=== PATIENT | male | born 1940 | race Caucasian/White ===

== ENCOUNTER 2016-03-28 15:18 | Inpatient (IN) | payer BC ==
--- NOTE | ~2016-03-28 | IDS ---
Interim Discharge Summary [facility] [address] [place]. [address] NAME: SANAM FONTANEZ : [birth year] STATUS : ADM IN PAT#: [id number] AGE: 75 ADM/REG DATE : 03/28/16 MR#: [id number] REPORT SERV DATE: 04/10/16 DICTATED BY: FARTUN ANAYA DATE: 04/10/16 REPORT STATUS : Draft TRANSCRIBED BY: MODL DATE: 04/10/16 ADMISSION DATE: 03/28/2016 DISCHARGE DATE: Interim date covered: 04/04/2016 through 04/10/2016. Please see interim summary by Dr. Eliu Light for hospital course prior to my assuming the patient's care. CURRENT HOSPITAL DIAGNOSES: Include: 1. Lung cancer with esophageal compression. 2. Dysphagia due to esophageal compression, status post esophageal stent by Dr. Gifford. 3. Chronic obstructive pulmonary disease with acute exacerbation, which had resolved. 4. Dyspepsia. 5. Atrial fibrillation. 6. Aspiration pneumonia, status post antibiotic treatment. 7. 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 Follows up outpatient with Dr. Florian. 8. Sepsis on admission, resolved. 9. Type 2 diabetes. 10.Morbid obesity. HISTORY OF PRESENT ILLNESS: Please see full H and P from admission by Dr. Eliu Light. HOSPITAL COURSE: Please see interim summary from Dr. Eliu Light from 04/03/2016. Since I have assumed care of the patient on 04/04/2016, the patient did finally have his esophageal stent placed by Dr. Gifford on 04/06/2016. There was noted extrinsic narrowing of the esophagus, status post stenting. He currently has been advanced past liquid diet per speech evaluation today, did have a modified barium swallow. Recommend pureed diet with honey-thickened liquids, small sips, small bites, and no straws. Aspiration precautions and oral care to be continued. In regard to his aspiration, pneumonia and COPD, these have resolved and he is status post treatment. He will follow up with Dr. Florian as an outpatient for further care and planning regarding his known lung cancer. He is back on his home medications p.o. since having his stent placed. He will be discharged to a subacute nursing facility once approval has been obtained. MARIA ISABEL/PEREZ Fartun Anaya MD / [id number] CC: Interim Discharge Summary [place] [address] [address] NAME: SANAM FONTANEZ : [birth year] STATUS : ADM IN PAT#: [id number] AGE: 75 ADM/REG DATE : 03/28/16 MR#: [id number] REPORT SERV DATE: 04/10/16 DICTATED BY: FARTUN ANAYA DATE: 04/10/16 REPORT STATUS : Draft TRANSCRIBED BY: MODL DATE: 04/10/16 Fartun Anaya MD UNKNOWN
--- NOTE | ~2016-03-28 | EGD ---
EGD REPORT [facility] [address] [address] NAME: SANAM BIRCH : 44 STATUS : ADM IN PAT#: [id number] AGE: 75 ADM/REG DATE : 03/28/16 MR#: [id number] REPORT SERV DATE: 04/03/16 DICTATED BY: MENDY AN DATE: 04/03/16 REPORT STATUS : Draft TRANSCRIBED BY: [facility] DATE: 04/03/16 [facility] Center Patient Name: Sanam Birch Date of : 1940 Attending MD: MENDY AN MD Procedure Date No Time: 04/03/2016 Procedure: Upper GI endoscopy Indications: Dysphagia, Stricture of the esophagus, Abnormal UGI series, Abnormal cine-esophagram Medicines: Propofol per Anesthesia Complications: No immediate complications. Procedure: Pre-Anesthesia Assessment: - ASA Grade Assessment: III - A patient with severe systemic disease. After obtaining informed consent, the endoscope was passed under direct vision. Throughout the procedure, the patient's blood pressure, pulse, and oxygen saturations were monitored continuously. The GIF [id number] was introduced through the mouth, and advanced to the gastric cardia. The upper GI endoscopy was accomplished without difficulty. The patient tolerated the procedure well. Findings: Food was found in the upper third of the esophagus and in the middle third of the esophagus. An extrinsic moderate stenosis measuring 8 cm (in length) was found 30 cm from the incisors and was traversed. The entire examined stomach was normal. Impression: - Food in the upper third of the esophagus and in the middle third of the esophagus. - Extrinsic narrowing of the esophagus. - Normal stomach. - Due to the food in the esophagus it was decided to end the procedure. Recommendation: - Perform an upper GI endoscopy at appointment to be scheduled. - with placement of a 10cm esophageal stent. - Clear liquid diet. - [facility]. Procedure Code(s): --- Professional --- 40868, Esophagoscopy, flexible, transoral; diagnostic, EGD REPORT [facility] [address] [place], [place] [address]. [address] NAME: SANAM BIRCH : 44 STATUS : ADM IN [facility]#: [id number] AGE: 75 ADM/REG DATE : 03/28/16 MR#: [id number] REPORT SERV DATE: 04/03/16 DICTATED BY: MENDY AN DATE: 04/03/16 REPORT STATUS : Draft TRANSCRIBED BY: [employer] DATE: 04/03/16 including collection of specimen(s) by brushing or washing, when performed (separate procedure) Diagnosis Code(s): --- Professional --- T18.128A, Food in esophagus causing other injury, initial encounter K22.2, Esophageal obstruction R13.10, Dysphagia, unspecified R93.3, Abnormal findings on diagnostic imaging of other parts of digestive tract CPT copyright 2013 [employer]. All rights reserved. The codes documented in this report are preliminary and upon qa analyst review may be revised to meet current compliance requirements. Mendy An MD MENDY AN MD 04/03/2016 4:33 PM This report has been signed electronically. Number of Addenda: 0 Note Initiated On: 04/03/2016 2:52 PM Scope Withdrawal Time 0 hours 0 minutes 0 seconds [address] [facility] [place] [address]
--- NOTE | ~2016-03-28 | IDS ---
Interim Discharge Summary [facility] [address] [place]. [address] NAME: SANAM FONTANEZ : 42 STATUS : ADM IN [facility]#: [id number] AGE: 75 ADM/REG DATE : 03/28/16 MR#: [id number] REPORT SERV DATE: 04/04/16 DICTATED BY: DATE: REPORT STATUS : Draft TRANSCRIBED BY: MODL DATE: 04/03/16 ADMISSION DATE: 03/28/2016 DISCHARGE DATE: [facility] CONSULTANTS: Medical Oncology - Dr. Jono Florian; Radiation Oncology; and Gastroenterology, Dr. Gifford. CURRENT DIAGNOSES: 1. Sepsis present at admission - due to aspiration pneumonia versus pneumonitis. Recurrent aspiration events during the hospitalization. Plan to discontinue Zosyn on the morning of 04/04/2016, three days after last witnessed aspiration event. 2. Acute exacerbation of chronic obstructive pulmonary disease due to aspiration pneumonia versus pneumonitis. 3. Acute on chronic hypoxemic respiratory failure - currently at baseline oxygen requirement 2 L by nasal cannula. 4. Esophageal dysmotility versus extrinsic compression from large right-sided lung cancer - for attempted EGD with stent on the afternoon of 04/03/2016 - procedure terminated for excessive retained food in the esophagus. To re-attempt on 04/05/2016. 5. 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 Functional status limits treatment options. 6. Recurrent pleural effusion - status post PleurX catheter on 03/21/2016. Draining on Sunday, Sunday, and Sunday. 7. Chronic atrial fibrillation - currently rate controlled. Some hypotension on attempts to increase rate agents. Improved with digoxin. 8. Blg-gphjjbo-lxrtmxrmy diabetes mellitus type 2. 9. History of hypertension. 10.Hyperlipidemia. 11.Depression and anxiety. 12.Morbid obesity. 13.Generalized weakness and poor functional status. 14.Acute kidney injury present at admission - resolved. IMAGING AND DIAGNOSTICS: 1. Chest CT without contrast, 03/28/2016, for hypoxemia and sepsis shows new finding related to the esophagus. Esophagus is filled with gas and debris, possibly related to reflux, achalasia, or distal GE junction lesion. No lesion identified on CT. Correlation with esophagram is recommended. Modified barium swallow would be of benefit. Decreased size of rounded density in the lingula, likely atelectasis. Other findings similar with noted right lung carcinoma, post obstructive consolidation, and pleural fluid with PleurX drainage catheter in place. 2. Barium swallow, 03/31/2016: Narrowing of the distal half of the esophagus may be due to compression by the patient's known right lower lobe mass extending into the mediastinum, radiation therapy, reflux, stricture, or a combination. Primary stripping Interim Discharge Summary [place] [address] [address] NAME: SANAM FONTANEZ : 44 STATUS : ADM IN PAT#: [id number] AGE: 75 ADM/REG DATE : 03/28/16 MR#: [id number] REPORT SERV DATE: 04/04/16 DICTATED BY: DATE: REPORT STATUS : Draft TRANSCRIBED BY: MODL DATE: 04/03/16 wave is disrupted at the level where the narrowing begins and is followed by numerous tertiary contractions. Barium tablet could not be given as they are currently not available nationwide. 3. EGD, 04/03/2016, by Dr. Gifford showed food in the upper third of the esophagus and in the middle third of the esophagus, extrinsic moderate stenosis measuring 8 mm found 30 cm from the incisors and was traversed. Normal stomach. Esophageal stent could not be placed. PERTINENT LABS: Sputum culture with sparse growth of MRSA. Lactate 1.1. Troponin x2 negative. BNP 209. TSH 0.4. White blood cell count 10.5, hemoglobin 9.6. Initial creatinine 1.6, current creatinine 1.2. Digoxin level 0.5. BRIEF HISTORY: For full details, please see the previously dictated history of present illness. This is a 75-year-old white male with multiple recent hospitalizations, accepted in transfer from the [facility] Emergency Department after he was sent there twice from [facility] where he was rehabilitating after a recent hospitalization at [facility] for symptomatic right-sided pleural effusion. The patient was diagnosed with stage IIIA squamous cell carcinoma of the right lung in 02/2016, and then readmitted in 03/2016 with a symptomatic right-sided pleural effusion, and underwent thoracentesis and eventual PleurX catheter placement on 03/21/2016. He was referred to [facility] at discharge and apparently was not doing very well once there. He was experiencing some reflux and noted to be aspirating. He was having progressive dysphagia. This culminated in an episode of shortness of breath and hypoxemia for which he was initially evaluated in the [facility] Emergency Department on 03/27/2016 and discharged because he was refusing admission at that point. He was sent back to the [facility] on the morning of 03/28/2016 with oxygen saturations in the 80% range on 4 L nasal cannula, in AFib RVR, with hypotension, and altered mental status. He requested admission to [facility] because his oncologist is here, and because he had recently been discharged from this facility. He was admitted to the [facility] with diagnoses of sepsis, stage IIIA squamous cell cancer of the right lung, atrial fibrillation RVR, and suspected new right middle lobe infiltrate. HOSPITAL COURSE: Initial antibiotics included coverage for healthcare-acquired pneumonia, with cefepime and vancomycin. He has a history of COPD and was wheezing, so also was placed on steroids and nebulizer treatments. Regarding atrial fibrillation, his Cardizem was attempted to be increased, but this resulted in hypotension necessitating the addition of digoxin this admission with good result. The history of a recently abnormal swallow evaluation at [facility] was not available until family was present and the patient's mentation was improved on 03/30/2016, at which point interim history included that the patient has been aspirating over the past 4 weeks, and that recurrent aspiration pneumonia or pneumonitis was most likely cause for this hospitalization, sepsis, and acute pulmonary decompensation. The patient had never been evaluated by Gastroenterology. CT scan revealed probable extrinsic compression of the esophagus with a large amount of retained gas, food, and other debris. Gastroenterology was consulted - Dr. Gifford. He saw the patient on 03/30/2016 and began planning for an EGD. Interim Discharge Summary [address] [place]. [address] NAME: SANAM FONTANEZ : 44 STATUS : ADM IN [facility]#: [id number] AGE: 75 ADM/REG DATE : 03/28/16 MR#: [id number] REPORT SERV DATE: 04/04/16 DICTATED BY: DATE: REPORT STATUS : Draft TRANSCRIBED BY: MODL DATE: 04/03/16 Oncology has been following along this admission as well, and agreed with the plan for EGD and esophageal stent to relieve the obstruction, and give the patient a chance at some meaningful nutrition in the hopes that he will be able to participate with physical therapy more actively and improve his functional status so that he can be a candidate for full staging for his lung cancer, and possibly for chemotherapy and radiation. At present, he has been unable to participate with PT, and is unable to keep down food and fluid. He has been counseled on multiple occasions by Dr. Florian that he is not presently a candidate for any treatment, and his code status was changed to DNR this admission. However, the patient would continue to decline hospice. EGD was attempted on 04/03/2016, but there was an excessive quantity of retained food, pill fragments, and other debris throughout the esophagus, and the procedure with stent placement could not be completed. Dr. Gifford is going to attempt the procedure again on 04/05/2016. As previously discussed with Oncology, palliative radiation of the right lower lobe squamous cell carcinoma may be an option as well to help relieve the esophageal obstruction and symptoms there of - however, this approach would require a longer amount of time before any expected response. The patient's chronic medical conditions are well controlled this admission. His breathing is greatly improved, and as his last witnessed aspiration event was on 04/01/2016, we will plan to discontinue his Zosyn tomorrow morning. Pulmonary status and white blood cell count will need to be monitored closely, and repeat lab values are pending for the morning. Following the failed EGD attempt, Dr. Gifford has recommended that the patient be kept on clear liquids only, and all of his medications be changed over to IV. This was done with the assistance of the pharmacy, as possible this evening. His chronic anticoagulation for stroke prophylaxis with atrial fibrillation will remain on hold, awaiting repeat EGD. AKS/MODL Eliu Light M.D. / [id number] CC: Crystal Norton M.D. Benjamin R Nadeau, MD
--- NOTE | ~2016-03-28 | EGD ---
EGD REPORT [facility] [address] [address] NAME: SANAM BIRCH : 44 STATUS : ADM IN PAT#: [id number] AGE: 75 ADM/REG DATE : 03/28/16 MR#: [id number] REPORT SERV DATE: 04/06/16 DICTATED BY: MENDY AN DATE: 04/06/16 REPORT STATUS : Draft TRANSCRIBED BY: [facility] DATE: 04/06/16 Endoscopy Center Patient Name: Sanam Birch Date of : 1940 Attending MD: MENDY AN MD Procedure Date No Time: 04/06/2016 Procedure: Upper GI endoscopy Indications: Stenosis of the esophagus, For therapy of esophageal stenosis Referring MD: GLENNA WYNN Medicines: General Anesthesia Complications: No immediate complications. Procedure: Pre-Anesthesia Assessment: - ASA Grade Assessment: IV - A patient with severe systemic disease that is a constant threat to life. After obtaining informed consent, the endoscope was passed under direct vision. Throughout the procedure, the patient's blood pressure, pulse, and oxygen saturations were monitored continuously. The GIF [id number] was introduced through the mouth, and advanced to the second part of duodenum. The upper GI endoscopy was accomplished without difficulty. The patient tolerated the procedure well. Findings: Normal mucosa was found in the entire esophagus. An extrinsic moderate stenosis measuring 8 cm (in length) was found 30 cm from the incisors and was traversed. This was stented with an 18 mm x 10.3 cm WallFlex covered stent under fluoroscopic guidance. A small hiatus hernia was present. as seen on retroflexion done prior to stent placement Diffuse mild inflammation characterized by congestion (edema) and erythema was found in the entire examined stomach. The examined duodenum was normal. Impression: - Normal mucosa was found in the entire esophagus. - Extrinsic narrowing of the esophagus. Prosthesis placed. - Hiatus hernia. - Gastritis. - Normal examined duodenum. Recommendation: - Clear liquid diet. - Continue present medications. - [facility]. EGD REPORT [address] [address] NAME: SANAM BIRCH : 44 STATUS : ADM IN [facility]#: [id number] AGE: 75 ADM/REG DATE : 03/28/16 MR#: [id number] REPORT SERV DATE: 04/06/16 DICTATED BY: MENDY AN DATE: 04/06/16 REPORT STATUS : Draft TRANSCRIBED BY: [employer] DATE: 04/06/16 Procedure Code(s): --- Professional --- 38153, Esophagogastroduodenoscopy, flexible, transoral; with placement of endoscopic stent (includes pre- and post-dilation and guide wire passage, when performed) Diagnosis Code(s): --- Professional --- K22.2, Esophageal obstruction K44.9, Diaphragmatic hernia without obstruction or gangrene K29.70, Gastritis, unspecified, without bleeding CPT copyright 2013 [employer]. All rights reserved. The codes documented in this report are preliminary and upon slot editor review may be revised to meet current compliance requirements. Mendy An MD MENDY AN MD 04/06/2016 4:33 PM This report has been signed electronically. Number of Addenda: 0 Note Initiated On: 04/06/2016 3:04 PM Scope Withdrawal Time 0 hours 0 minutes 1 second [id number] [place] [address]
--- NOTE | ~2016-03-28 | DS ---
Discharge Summary [place] [address] [place]. [address] NAME: SANAM FONTANEZ : 44 STATUS : DIS IN PAT#: [id number] AGE: 75 ADM/REG DATE : 03/28/16 MR#: [id number] REPORT SERV DATE: 06/01/16 DICTATED BY: SOFIE BUCHANAN II DATE: 05/31/16 REPORT STATUS : Draft TRANSCRIBED BY: MODL DATE: 05/31/16 ADMISSION DATE: 03/28/2016 DISCHARGE DATE: 04/12/2016 DISCHARGE DIAGNOSES: 1. Lung cancer with esophageal compression. 2. Dysphagia due to esophageal compression status post esophageal stent by Dr. Gifford. 3. Chronic obstructive pulmonary disease with acute exacerbation, now resolved. 4. Dyspepsia. 5. Atrial fibrillation. 6. Aspiration pneumonia status post antibiotic treatment. 7. 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 Florian. 8. Sepsis on admission, now resolved. 9. Diabetes type 2. 10.Morbid obesity. HISTORY OF PRESENT ILLNESS: Please see full H and P from admission by Dr. Eliu Light. HOSPITAL COURSE: For details of the patient's hospitalization please see Dr. Light's interim summary from 04/03/[address] Anaya's summary from 04/10/2016. I subsequently took over the patient's care and the patient was discharged two days later on the as he was merely pending placement at that point in time for group home. Unfortunately, the patient continued to have progressive hypoxia secondary to aspiration with coarse lung sounds. Given the overall poor prognosis and him not being a treatment candidate for his lung cancer, Hospice was recommended and given his oxygen requirement was subsequently transferred to the [facility]. DISCHARGE MEDICATIONS: Per Hospice. RAYMOND/PEREZ Sofie Buchanan II, MD / [id number] CC: Sofie Buchanan II, MD
--- NOTE | ~2016-03-28 | HP ---
History And Physical [place] [id number] [facility] [place]. [address] NAME: SANAM BIRCH : 44 STATUS : ADM IN [facility]#: [id number] AGE: 75 ADM/REG DATE : 03/28/16 MR#: [id number] REPORT SERV DATE: 03/28/16 DICTATED BY: DATE: REPORT STATUS : Draft TRANSCRIBED BY: MODL DATE: 03/28/16 DATE OF ADMISSION: 03/28/2016 CHIEF COMPLAINT: Shortness of breath, altered mental status. HISTORY OF PRESENT ILLNESS: Mr. Birch is a 75-year-old white male who was recently hospitalized here at [facility], discharged on 03/23/2016, after being treated for a right- sided pleural effusion. He underwent thoracentesis on 03/20/2016 and placement of a PleurX catheter on 03/21/2016. 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 Imaging after placement of PleurX catheter and drainage of the right- sided effusion revealed extensive malignancy throughout the right side, including the hilum. Plan was for patient to follow up with Dr. Jono Florian to discuss options regarding chemotherapy and/or radiation therapy. The patient subsequently was transferred to [facility] to begin physical rehabilitation. He was cared for there by Dr. William Delarosa. The PleurX catheter was being drained every Sunday, Sunday, and Sunday per discharge instructions. Reportedly, the patient's PleurX catheter was drained on Sunday morning, but throughout the afternoon, he developed increasing shortness of breath. He initially was seen in the [facility] Emergency Department on the evening of 03/27/2016 with shortness of breath but refused to be admitted. He was sent back to [facility], and transported back early in the morning on the 03/28/2016 with hypoxemia and noted oxygen saturations in the mid 80s on 4 L nasal cannula. Also, he had an elevated heart rate in one-teens to 120 range. He was found to be confused upon his second [facility] evaluation, and though he continued to refuse admission, was not deemed mentally competent to make that decision at that time. Additional workup in their emergency department revealed possibly new right lower lobe infiltrate, elevated lactic acid level, and elevated white blood cell count concerning for a new pneumonia. Regarding the atrial fibrillation, the patient was treated with a Cardizem drip but developed hypotension with systolic blood pressures in the 80s, and subsequently this drip had to be discontinued. Instead, he was given IV digoxin with resultant rates between 100 and 110 and systolic blood pressure in the 100 range after fluids. [facility] requested transfer here because the patient is to establish oncologic care with Dr. Jono Florian, and the patient was just discharged from this facility on 03/23/2016 and has had several recent hospitalizations here as well. On evaluation this evening, the patient reports feeling "okay." He still endorses some shortness of breath but denies any chest pain or palpitations. He is not producing phlegm. He denies any paroxysmal nocturnal dyspnea or orthopnea. He denies recent edema. He is complaining of thirst. The patient was treated with vancomycin, Zosyn, and Levaquin prior to transfer. REVIEW OF SYSTEMS: A full 14-point review of systems was negative except as dictated in the history of present History And Physical [address] [address] NAME: SANAM BIRCH : 44 STATUS : ADM IN [facility]#: [id number] AGE: 75 ADM/REG DATE : 03/28/16 MR#: [id number] REPORT SERV DATE: 03/28/16 DICTATED BY: DATE: REPORT STATUS : Draft TRANSCRIBED BY: MODNatalie DATE: 03/28/16 illness. PAST MEDICAL HISTORY: 1. COPD - 2 L oxygen dependent at baseline. 2. History of recurrent pneumonias. 3. Atrial fibrillation - rate controlled and chronically anticoagulated. 4. Bzk-kltlgly-wtnvnrhle diabetes mellitus type 2. 5. Hypertension. 6. History of multiple pleural effusions and a prior empyema in 2013, status post decortication, most recently with a thoracentesis and PleurX catheter placed, 03/21/2016. 7. Chronic kidney disease, stage III. 8. Obesity. 9. Osteoarthritis. PAST SURGICAL HISTORY: Includes: 1. PleurX catheter placement, 2016. 2. Decortication of empyema, 2013. 3. Appendectomy in the third grade. ALLERGIES: NO KNOWN DRUG ALLERGIES. MEDICATIONS: The medication list from [facility] was reviewed, pertinent for 1. Hydrochlorothiazide 25 mg p.o. daily. 2. Hydrocodone 5/325 mg one tablet p.o. every 4 hours as needed. 3. Humalog sliding scale insulin. 4. Krill oil 1 cap p.o. daily. 5. Ativan 2 mg p.o. three times a day. 6. Dulera 200/5 mcg 2 puffs inhaled twice a day. 7. Actos 45 mg p.o. daily. 8. Xarelto 20 mg p.o. daily. 9. Diovan 320 mg p.o. daily. 10.Acetaminophen 1000 mg p.o. twice a day as needed for osteoarthritis. 11.DuoNebs 1 neb inhaled every 4 hours while awake. 12.Lipitor 20 mg p.o. at bedtime. 13.Coreg 25 mg p.o. twice a day. 14.Mycelex troches 10 mg p.o. four times a day. 15.Cardizem 30 mg p.o. every six hours. 16.Cymbalta 60 mg p.o. daily. 17.Lasix 20 mg p.o. daily. SOCIAL HISTORY: The patient used to smoke, began smoking when he was 19 years old. He quit smoking in 2015 but still has some secondhand smoke exposure. He does not drink any alcohol. He is a [employer] and was exposed to asbestos while serving in the [employer]. He is a retired welder repair. He has no biologic children. FAMILY HISTORY: Pertinent for mother with Alzheimer's dementia and father in his 80s of History And Physical [address] [address] NAME: SANAM BIRCH : 44 STATUS : ADM IN [facility]#: [id number] AGE: 75 ADM/REG DATE : 03/28/16 MR#: [id number] REPORT SERV DATE: 03/28/16 DICTATED BY: DATE: REPORT STATUS : Draft TRANSCRIBED BY: MODNatalie DATE: 03/28/16 myocardial infarction. PHYSICAL EXAMINATION: VITAL SIGNS: Temperature 96.5, pulse 94, respirations 20, oxygen saturation 99% on 4 L nasal cannula, and blood pressure 103/63. GENERAL: This is an obese white male in no acute distress. He is alert and oriented in three dimensions with somewhat wqfcfwmqa-ui-suczxxhtrf speech at baseline. HEENT: Normocephalic and atraumatic. Pupils are equally round and reactive to light. No scleral icterus. No conjunctival pallor. No sinus tenderness to palpation. Oropharynx is dry with pink mucosa. No posterior pharyngeal erythema. No exudate. NECK: Supple with no jugular venous distention. No lymphadenopathy. No bruits. CARDIOVASCULAR: Irregularly irregular tachycardia with no murmurs, rubs, or gallops. LUNGS: Coarse inspiratory rhonchi, bilateral bases, right greater than left with decreased breath sounds at bilateral bases and tight end expiratory wheezing. ABDOMEN: Soft, nontender, and nondistended with normoactive bowel sounds in four quadrants and no hepatosplenomegaly. EXTREMITIES: No cyanosis, clubbing, or edema. Negative Homans' sign bilaterally. SKIN: Normal skin turgor with no rash or skin breakdown. NEUROLOGIC: Cranial nerves II through XII are tested and are intact. Deep tendon reflexes 2+, bilateral brachioradialis and patellar tendons. Strength is 5/5, bilateral upper and lower extremities. Sensation intact to fine touch and temperature in all four limbs. LABORATORY DATA: [facility] record is reviewed with troponin 0.02, white blood cell count 13.5, hemoglobin 10.3, hematocrit 32.9, and platelets 195. PTT 46. INR 1.6. Lactic acid is 3.12. Urinalysis slightly cloudy with 1 epithelial cell and 15 hyaline casts; otherwise, normal. Blood cultures were obtained at [place] but not yet available for review. IMAGING: Reportedly a portable chest x-ray done at [place] showed right lower lobe infiltrate. Report and images are not available for review here. No EKG accompanied the patient on transfer either. IMPRESSION: 1. Sepsis - elevated white count, increased heart rate, hypoxemia, elevated lactic acid with possible new right-sided infiltrate. Recent hospitalizations. Suspect healthcare- acquired pneumonia. 2. Acute on chronic hypoxemic respiratory failure. 3. Chronic obstructive pulmonary disease with acute exacerbation. 4. Stage IIIA squamous cell carcinoma of the right lung with associated effusions, status post recent thoracentesis and PleurX catheter placement. 5. Atrial fibrillation with rapid ventricular response - underlying history of atrial fibrillation chronically. 6. Uts-jeolzho-ebwamzwzl diabetes mellitus type 2. 7. History of hypertension - presently hypotensive. 8. Chronic kidney disease, stage III - creatinine currently normal. 9. Generalized anxiety disorder. 10.Morbid obesity. History And Physical [address] [address] NAME: SANAM BIRCH : 44 STATUS : ADM IN PAT#: [id number] AGE: 75 ADM/REG DATE : 03/28/16 MR#: [id number] REPORT SERV DATE: 03/28/16 DICTATED BY: DATE: REPORT STATUS : Draft TRANSCRIBED BY: MODL DATE: 03/28/16 PLAN: 1. The patient is admitted in inpatient status to a cardiac telemetry unit. Attending doctor, Dr. Eliu Light. Expected length of stay, greater than 2 midnights, given necessity for IV antibiotics, IV steroids, intensified nebulizer regimen, and adjustments to atrial fibrillation medications. 2. Records have been requested from Dr. Jono Florian's office - it is unclear whether the patient has seen him as an outpatient yet. 3. Sputum cultures if patient able to produce. Follow up blood cultures from [facility]. Obtain serum lactic acid level now as the patient has received IV fluids for most of today with a repeat in hours. Additional labs including strep pneumo antigen and Legionella antigen, procalcitonin, BNP, serial troponins, repeat CBC, and basic metabolic panel in the morning. 4. Supplemental oxygen, IV steroids, nebulizer treatments, antibiotics for healthcare- acquired pneumonia to include cefepime and vancomycin initially with adjustment pending culture results. 5. CT of the chest without contrast to re-evaluate the abnormalities on the right side of the lung - lung cancer with history of empyema, recent loculated effusion, possible new pneumonia. 6. Gentle IV hydration. Last known echocardiogram in 10/2015 showed normal ejection fraction. 7. Attempt rate control with oral Cardizem and digoxin if needed. Continue patient on home anticoagulation and check EKG now as well as in the morning. 8. Sliding scale insulin and Accu-Cheks, monitor for need for basal insulin if steroid- induced hyperglycemia develops. Forty-five minutes was spent in completion of this admission. MARYSOL/PEREZ Eliu Light M.D. / [id number] CC: Jono Florian MD
[~2016-03-28 15:18] MED LIST: ACET500CAP PO; ACTOS30 PO; ACTOS45 PO; ATIVAN2 MG PO; ATV1 PO; COREG25 PO; COUMADIN7.5 MG PO; CYANO1000T PO; CYMBALTA60 PO; DIOVAN HCT320 MG/25 PO; FOLIC ACID400 MC1 PO; HCTZ PO; KRILLOIL PO; L20 PO; LIPITOR10 PO; LIPITOR20 PO; SYMBICORT 160/41 INH INH; VALSARTAN PO; VITAMIN B-12 PO; XARELTO20 MG PO
[2016-03-28] MEDS ORDERED: LIPITOR20 PO (16:48)
[2016-03-28] MEDS ORDERED: CARD30 PO (16:49)
[2016-03-28] MEDS ORDERED: L20 PO (16:49)
[2016-03-28] MEDS ORDERED: MYCELEX TROCHE10 MG PO (16:49)
[2016-03-28] MEDS ORDERED: CYMBALTA60 PO (16:49)
[2016-03-28] MEDS ORDERED: XARELTO20 MG PO (16:50)
[2016-03-28] MEDS ORDERED: DULERA 200 MCG/13 GM INH (16:50)
[2016-03-28] MEDS ORDERED: ACTOS45 PO (16:50)
[2016-03-28] MEDS ORDERED: DUONEB INH (16:50)
[2016-03-28] MEDS ORDERED: ACET500CAP PO (16:51)
[2016-03-28] MEDS ORDERED: COREG25 PO (16:51)
[2016-03-28] MEDS ORDERED: HUMALOG SC (16:51)
[2016-03-28] MEDS ORDERED: ATIVAN2 MG PO (16:52)
[2016-03-28] MEDS ORDERED: DIOVAN320 MG PO (16:52)
[2016-03-28] MEDS ORDERED: KRILLOIL PO (16:52)
[2016-03-28] MEDS ORDERED: HYDROCHLOROT25 MG PO (16:52)
[2016-03-28] MEDS ORDERED: NORCO1 TA1 PO (16:52)
[2016-03-28 19:37] LABS: BASOPHILS 0.1 %; BASOPHILS ABSOLUTE 0.01 10/3/uL (0.0-0.16); EOSINOPHILS 0.5 %; EOSINOPHILS ABSOLUTE 0.05 10/3/uL (0.0-0.53); IMMATURE GRANULOCYTES 0.9 %; LYMPHOCYTES 11.2 %; LYMPHOCYTES ABSOLUTE 1.18 10/3/uL (0.67-4.30); MEAN CORPUS HGB CONC 31.6 g/dL (32.0-36.0); MEAN CORPUSCULAR HEMOGLOB 26.5 pg (26.0-34.0); MEAN CORPUSCULAR VOLUME 83.8 fL (80-100); MEAN PLATELET VOLUME 10.4 fL (9.2-13.0); MONOCYTES 3.8 %; NEUTROPHILS 83.5 %; NEUTROPHILS ABSOLUTE 8.79 10/3/uL (2.02-8.40); PLATELET COUNT 208 10/3/uL (150-400); RBC DISTRIBUTION WIDTH 17.5 % (12.0-16.0)
[2016-03-28 19:38] LABS: HEMATOCRIT 28.5 % (40.0-51.0); MANUAL DIFF NO %; WHITE BLOOD CELLS 10.5 10/3/uL (4.5-10.5)
[2016-03-28 19:57] LABS: LACTATE 1.3 MMOL/L (0.3-2.4)
[2016-03-28 20:02] LABS: A/G RATIO 0.5 (0.7-1.9); ALKALINE PHOSPHATASE 68 U/L (45-117); CALCIUM, SERUM 8.5 MG/DL (8.5-10.4); CHLORIDE, SERUM 93 MMOL/L (96-112); CO2 (CARBON DIOXIDE) 32 MMOL/L (24-34); GLUCOSE, SERUM 161 MG/DL (60-99); POTASSIUM, SERUM 3.5 MMOL/L (3.5-5.3); SGOT(AST) 13 U/L (5-40); SGPT(ALT) 12 U/L (5-65); SODIUM, SERUM 137 MMOL/L (135-148); TROPONIN I <0.02 NG/ML (<0.05)
[2016-03-28 20:05] LABS: BUN (BLOOD UREA NITROGEN) 31 MG/DL (6-23); CREATININE 1.59 MG/DL (0.70-1.30); GFR AFRICAN AMERICAN 49 ML/MIN (>=60); GFR NON AFRICAN AMERICAN 42 ML/MIN (>=60); TOTAL BILIRUBIN 0.7 MG/DL (0-1.2); ULTRASENSITIVE TSH 0.407 MCIU/ML (0.358-3.740)
[2016-03-28 20:07] LABS: B NATRIURETIC PEPTIDE (BNP) 209.1 PG/ML (< 100.0)
[2016-03-28 20:53] LABS: PROCALCITONIN 0.16 ng/mL (<0.5)
[2016-03-28 22:43] LABS: LACTATE 1.1 MMOL/L (0.3-2.4)
[2016-03-29 06:20] LABS: BASOPHILS 0.1 %; BASOPHILS ABSOLUTE 0.01 10/3/uL (0.0-0.16); EOSINOPHILS 0 %; HEMATOCRIT 30.2 % (40.0-51.0); HEMOGLOBIN 9.6 g/dL (13.6-17.8); IMMATURE GRANULOCYTES ABSOLUTE 0.11 10/3/uL (0.0-0.11); LYMPHOCYTES ABSOLUTE 0.32 10/3/uL (0.67-4.30); MEAN CORPUS HGB CONC 31.8 g/dL (32.0-36.0); MEAN CORPUSCULAR HEMOGLOB 27.1 pg (26.0-34.0); MEAN CORPUSCULAR VOLUME 85.3 fL (80-100); MEAN PLATELET VOLUME 10.4 fL (9.2-13.0); MONOCYTES ABSOLUTE 0.11 10/3/uL (0.21-1.20); NEUTROPHILS 94.9 %; NEUTROPHILS ABSOLUTE 9.97 10/3/uL (2.02-8.40); PLATELET COUNT 212 10/3/uL (150-400); RBC DISTRIBUTION WIDTH 17.2 % (12.0-16.0); RED CELL COUNT 3.54 10/6/uL (4.7-6.1); WHITE BLOOD CELLS 10.5 10/3/uL (4.5-10.5)
[2016-03-29 06:21] LABS: MANUAL DIFF NO %
[2016-03-29 06:34] LABS: CHLORIDE, SERUM 95 MMOL/L (96-112); CREATININE 1.29 MG/DL (0.70-1.30); GFR AFRICAN AMERICAN 63 ML/MIN (>=60); GFR NON AFRICAN AMERICAN 55 ML/MIN (>=60); POTASSIUM, SERUM 4.2 MMOL/L (3.5-5.3); SODIUM, SERUM 135 MMOL/L (135-148); TROPONIN I <0.02 NG/ML (<0.05)
[2016-03-29 06:35] LABS: BUN (BLOOD UREA NITROGEN) 27 MG/DL (6-23); CO2 (CARBON DIOXIDE) 27 MMOL/L (24-34); GLUCOSE, SERUM 238 MG/DL (60-99)
[2016-03-29 21:17] LABS: GLYCOHEMOGLOBIN (HbA1c) 7.8 % (4.7-6.1)
[2016-03-30 09:45] LABS: BASOPHILS 0.1 %; BASOPHILS ABSOLUTE 0.01 10/3/uL (0.0-0.16); EOSINOPHILS 0 %; HEMOGLOBIN 9.7 g/dL (13.6-17.8); IMMATURE GRANULOCYTES 0.6 %; IMMATURE GRANULOCYTES ABSOLUTE 0.08 10/3/uL (0.0-0.11); LYMPHOCYTES 3.1 %; LYMPHOCYTES ABSOLUTE 0.41 10/3/uL (0.67-4.30); MEAN CORPUS HGB CONC 32.3 g/dL (32.0-36.0); MEAN CORPUSCULAR HEMOGLOB 27.3 pg (26.0-34.0); MEAN CORPUSCULAR VOLUME 84.5 fL (80-100); MEAN PLATELET VOLUME 10.6 fL (9.2-13.0); MONOCYTES 1.4 %; MONOCYTES ABSOLUTE 0.19 10/3/uL (0.21-1.20); NEUTROPHILS 94.8 %; NEUTROPHILS ABSOLUTE 12.64 10/3/uL (2.02-8.40); PLATELET COUNT 240 10/3/uL (150-400); RED CELL COUNT 3.55 10/6/uL (4.7-6.1); WHITE BLOOD CELLS 13.3 10/3/uL (4.5-10.5)
[2016-03-30 09:46] LABS: MANUAL DIFF NO %
[2016-03-30 10:01] LABS: BUN (BLOOD UREA NITROGEN) 27 MG/DL (6-23); CHLORIDE, SERUM 94 MMOL/L (96-112); CO2 (CARBON DIOXIDE) 30 MMOL/L (24-34); CREATININE 1.29 MG/DL (0.70-1.30); GFR AFRICAN AMERICAN 63 ML/MIN (>=60); GFR NON AFRICAN AMERICAN 55 ML/MIN (>=60); GLUCOSE, SERUM 256 MG/DL (60-99); POTASSIUM, SERUM 3.7 MMOL/L (3.5-5.3); SODIUM, SERUM 136 MMOL/L (135-148)
[2016-04-01 04:41] LABS: HEMATOCRIT 31.5 % (40.0-51.0); MEAN CORPUS HGB CONC 31.7 g/dL (32.0-36.0); MEAN CORPUSCULAR HEMOGLOB 26.5 pg (26.0-34.0); MEAN CORPUSCULAR VOLUME 83.6 fL (80-100); MEAN PLATELET VOLUME 10.4 fL (9.2-13.0); PLATELET COUNT 253 10/3/uL (150-400); RBC DISTRIBUTION WIDTH 17.4 % (12.0-16.0); RED CELL COUNT 3.77 10/6/uL (4.7-6.1); WHITE BLOOD CELLS 12.7 10/3/uL (4.5-10.5)
[2016-04-01 04:43] LABS: MANUAL DIFF YES %
[2016-04-01 05:02] LABS: ANISOCYTOSIS 1+ (5-10/OIF) (0-5/OIF); BAND NEUTROPHILS 2 %; ELLIPTOCYTES 1+ (3-10/OIF) (0-2/OIF); LYMPHOCYTES 5 %; LYMPHOCYTES ABSOLUTE (CALC) 0.64 10/3/uL (0.67-4.30); MONOCYTES 3 %; MONOCYTES ABSOLUTE (CALC) 0.38 10/3/uL (0.21-1.20); NEUTROPHILS ABSOLUTE (CALC) 11.68 10/3/uL (2.02-8.40); PLATELET ESTIMATE ADQ (ADEQUATE); SEGMENTED NEUTROPHIL (0) 90 %; TEARDROP SHAPED RBCS OCC (0-2/OIF); TOTAL NUCLEATED CELLS 100
[2016-04-01 08:19] LABS: BUN (BLOOD UREA NITROGEN) 30 MG/DL (6-23); CALCIUM, SERUM 9.5 MG/DL (8.5-10.4); CHLORIDE, SERUM 101 MMOL/L (96-112); CO2 (CARBON DIOXIDE) 32 MMOL/L (24-34); CREATININE 1.21 MG/DL (0.70-1.30); GFR AFRICAN AMERICAN 68 ML/MIN (>=60); GFR NON AFRICAN AMERICAN 59 ML/MIN (>=60); POTASSIUM, SERUM 3.6 MMOL/L (3.5-5.3); SODIUM, SERUM 140 MMOL/L (135-148)
[2016-04-01 08:20] LABS: GLUCOSE, SERUM 129 MG/DL (60-99)
[2016-04-03 04:59] LABS: BASOPHILS 0.2 %; BASOPHILS ABSOLUTE 0.02 10/3/uL (0.0-0.16); EOSINOPHILS 0.1 %; EOSINOPHILS ABSOLUTE 0.01 10/3/uL (0.0-0.53); HEMATOCRIT 32.7 % (40.0-51.0); HEMOGLOBIN 10.4 g/dL (13.6-17.8); IMMATURE GRANULOCYTES 1.6 %; IMMATURE GRANULOCYTES ABSOLUTE 0.14 10/3/uL (0.0-0.11); LYMPHOCYTES 11.9 %; LYMPHOCYTES ABSOLUTE 1.03 10/3/uL (0.67-4.30); MEAN CORPUS HGB CONC 31.8 g/dL (32.0-36.0); MEAN CORPUSCULAR HEMOGLOB 27.3 pg (26.0-34.0); MEAN CORPUSCULAR VOLUME 85.8 fL (80-100); MEAN PLATELET VOLUME 10.4 fL (9.2-13.0); MONOCYTES 5.6 %; MONOCYTES ABSOLUTE 0.49 10/3/uL (0.21-1.20); NEUTROPHILS 80.6 %; PLATELET COUNT 222 10/3/uL (150-400); RBC DISTRIBUTION WIDTH 17.5 % (12.0-16.0); RED CELL COUNT 3.81 10/6/uL (4.7-6.1); WHITE BLOOD CELLS 8.7 10/3/uL (4.5-10.5)
[2016-04-03 05:06] LABS: MANUAL DIFF NO %
[2016-04-03 05:24] LABS: BUN (BLOOD UREA NITROGEN) 29 MG/DL (6-23); CALCIUM, SERUM 9.8 MG/DL (8.5-10.4); CHLORIDE, SERUM 102 MMOL/L (96-112); CO2 (CARBON DIOXIDE) 32 MMOL/L (24-34); CREATININE 1.19 MG/DL (0.70-1.30); DIGOXIN 0.5 NG/ML (0.8-2.0); GFR AFRICAN AMERICAN 70 ML/MIN (>=60); GFR NON AFRICAN AMERICAN 60 ML/MIN (>=60); GLUCOSE, SERUM 142 MG/DL (60-99); POTASSIUM, SERUM 4.3 MMOL/L (3.5-5.3); SODIUM, SERUM 141 MMOL/L (135-148)
[2016-04-04 05:03] LABS: BASOPHILS 0.1 %; BASOPHILS ABSOLUTE 0.01 10/3/uL (0.0-0.16); EOSINOPHILS 0 %; HEMATOCRIT 34.7 % (40.0-51.0); HEMOGLOBIN 10.8 g/dL (13.6-17.8); IMMATURE GRANULOCYTES 1.4 %; LYMPHOCYTES 6.6 %; LYMPHOCYTES ABSOLUTE 0.47 10/3/uL (0.67-4.30); MANUAL DIFF NO %; MEAN CORPUS HGB CONC 31.1 g/dL (32.0-36.0); MEAN CORPUSCULAR HEMOGLOB 26.9 pg (26.0-34.0); MEAN CORPUSCULAR VOLUME 86.3 fL (80-100); MEAN PLATELET VOLUME 10.1 fL (9.2-13.0); MONOCYTES 2.8 %; NEUTROPHILS 89.1 %; NEUTROPHILS ABSOLUTE 6.29 10/3/uL (2.02-8.40); PLATELET COUNT 213 10/3/uL (150-400); RBC DISTRIBUTION WIDTH 17.4 % (12.0-16.0); RED CELL COUNT 4.02 10/6/uL (4.7-6.1); WHITE BLOOD CELLS 7.1 10/3/uL (4.5-10.5)
[2016-04-04 05:35] LABS: BUN (BLOOD UREA NITROGEN) 27 MG/DL (6-23); CALCIUM, SERUM 9.4 MG/DL (8.5-10.4); CHLORIDE, SERUM 103 MMOL/L (96-112); CO2 (CARBON DIOXIDE) 32 MMOL/L (24-34); CREATININE 1.16 MG/DL (0.70-1.30); GFR AFRICAN AMERICAN 72 ML/MIN (>=60); GFR NON AFRICAN AMERICAN 62 ML/MIN (>=60); POTASSIUM, SERUM 4.5 MMOL/L (3.5-5.3); SODIUM, SERUM 141 MMOL/L (135-148)
[2016-04-04 05:36] LABS: GLUCOSE, SERUM 205 MG/DL (60-99)
[2016-04-06 04:42] LABS: BASOPHILS 0.1 %; BASOPHILS ABSOLUTE 0.01 10/3/uL (0.0-0.16); EOSINOPHILS 0.2 %; EOSINOPHILS ABSOLUTE 0.02 10/3/uL (0.0-0.53); HEMATOCRIT 32.3 % (40.0-51.0); IMMATURE GRANULOCYTES 2.7 %; IMMATURE GRANULOCYTES ABSOLUTE 0.22 10/3/uL (0.0-0.11); LYMPHOCYTES 13.6 %; MEAN CORPUSCULAR HEMOGLOB 26.3 pg (26.0-34.0); MEAN PLATELET VOLUME 10.4 fL (9.2-13.0); MONOCYTES 8.9 %; MONOCYTES ABSOLUTE 0.72 10/3/uL (0.21-1.20); NEUTROPHILS 74.5 %; PLATELET COUNT 217 10/3/uL (150-400); RBC DISTRIBUTION WIDTH 17.7 % (12.0-16.0); WHITE BLOOD CELLS 8.1 10/3/uL (4.5-10.5)
[2016-04-06 04:56] LABS: MANUAL DIFF NO %
[2016-04-06 05:05] LABS: BUN (BLOOD UREA NITROGEN) 24 MG/DL (6-23); CALCIUM, SERUM 9.2 MG/DL (8.5-10.4); CHLORIDE, SERUM 103 MMOL/L (96-112); CO2 (CARBON DIOXIDE) 32 MMOL/L (24-34); CREATININE 1.04 MG/DL (0.70-1.30); DIGOXIN 0.9 NG/ML (0.8-2.0); GFR AFRICAN AMERICAN 82 ML/MIN (>=60); GFR NON AFRICAN AMERICAN 71 ML/MIN (>=60); POTASSIUM, SERUM 4.1 MMOL/L (3.5-5.3); SODIUM, SERUM 141 MMOL/L (135-148)
[2016-04-06 05:11] LABS: GLUCOSE, SERUM 124 MG/DL (60-99)
[2016-04-08 06:37] LABS: CALCIUM, SERUM 8.9 MG/DL (8.5-10.4); CHLORIDE, SERUM 99 MMOL/L (96-112); CO2 (CARBON DIOXIDE) 32 MMOL/L (24-34); CREATININE 0.95 MG/DL (0.70-1.30); GFR AFRICAN AMERICAN 92 ML/MIN (>=60); GFR NON AFRICAN AMERICAN 79 ML/MIN (>=60); SODIUM, SERUM 137 MMOL/L (135-148)
[2016-04-08 06:38] LABS: BUN (BLOOD UREA NITROGEN) 18 MG/DL (6-23); GLUCOSE, SERUM 203 MG/DL (60-99)
[2016-04-10 06:21] LABS: BASOPHILS 0.1 %; BASOPHILS ABSOLUTE 0.01 10/3/uL (0.0-0.16); EOSINOPHILS 0.3 %; EOSINOPHILS ABSOLUTE 0.04 10/3/uL (0.0-0.53); HEMATOCRIT 31.8 % (40.0-51.0); HEMOGLOBIN 10.1 g/dL (13.6-17.8); IMMATURE GRANULOCYTES 0.7 %; IMMATURE GRANULOCYTES ABSOLUTE 0.11 10/3/uL (0.0-0.11); LYMPHOCYTES 6.3 %; LYMPHOCYTES ABSOLUTE 0.92 10/3/uL (0.67-4.30); MANUAL DIFF NO %; MEAN CORPUS HGB CONC 31.8 g/dL (32.0-36.0); MEAN CORPUSCULAR HEMOGLOB 27.6 pg (26.0-34.0); MEAN CORPUSCULAR VOLUME 86.9 fL (80-100); MEAN PLATELET VOLUME 10.6 fL (9.2-13.0); MONOCYTES 7.6 %; MONOCYTES ABSOLUTE 1.12 10/3/uL (0.21-1.20); NEUTROPHILS ABSOLUTE 12.48 10/3/uL (2.02-8.40); PLATELET COUNT 182 10/3/uL (150-400); RBC DISTRIBUTION WIDTH 17.6 % (12.0-16.0); RED CELL COUNT 3.66 10/6/uL (4.7-6.1); WHITE BLOOD CELLS 14.7 10/3/uL (4.5-10.5)
[2016-04-10 06:41] LABS: BUN (BLOOD UREA NITROGEN) 17 MG/DL (6-23); CHLORIDE, SERUM 101 MMOL/L (96-112); CO2 (CARBON DIOXIDE) 32 MMOL/L (24-34); CREATININE 0.87 MG/DL (0.70-1.30); GFR AFRICAN AMERICAN 99 ML/MIN (>=60); GFR NON AFRICAN AMERICAN 86 ML/MIN (>=60); GLUCOSE, SERUM 175 MG/DL (60-99); POTASSIUM, SERUM 4.2 MMOL/L (3.5-5.3); SODIUM, SERUM 140 MMOL/L (135-148)
[2016-04-10 06:43] LABS: PHOSPHORUS, SERUM 1.4 MG/DL (2.5-4.5)
[2016-04-11 10:13] LABS: BASOPHILS 0.1 %; BASOPHILS ABSOLUTE 0.01 10/3/uL (0.0-0.16); EOSINOPHILS 1.1 %; EOSINOPHILS ABSOLUTE 0.13 10/3/uL (0.0-0.53); HEMATOCRIT 30.6 % (40.0-51.0); HEMOGLOBIN 9.8 g/dL (13.6-17.8); IMMATURE GRANULOCYTES 0.7 %; IMMATURE GRANULOCYTES ABSOLUTE 0.09 10/3/uL (0.0-0.11); LYMPHOCYTES 4.2 %; LYMPHOCYTES ABSOLUTE 0.51 10/3/uL (0.67-4.30); MANUAL DIFF NO %; MEAN CORPUSCULAR HEMOGLOB 26.8 pg (26.0-34.0); MEAN CORPUSCULAR VOLUME 83.6 fL (80-100); MEAN PLATELET VOLUME 10.7 fL (9.2-13.0); MONOCYTES ABSOLUTE 0.86 10/3/uL (0.21-1.20); NEUTROPHILS 86.9 %; NEUTROPHILS ABSOLUTE 10.65 10/3/uL (2.02-8.40); NUCLEATED RED BLOOD CELLS 0.2 /100WBC (0-0); PLATELET COUNT 160 10/3/uL (150-400); RBC DISTRIBUTION WIDTH 18.1 % (12.0-16.0); RED CELL COUNT 3.66 10/6/uL (4.7-6.1); WHITE BLOOD CELLS 12.3 10/3/uL (4.5-10.5)
== END 2016-04-12 20:25 | disposition hospice, inpatient (51) | DRG 871 ==
LOC: 6NO 15:18
PROVIDERS: Hospitalist; Internal Medicine; Internal Medicine Gastroenterology
PROC: 0DJ08ZZ Inspection of Upper Intestinal Tract, Via Natural or Artificial Opening Endoscopic (ICD-10-PCS; principal; 2016-04-03 16:06)
PROC: 0D758DZ Dilation of Esophagus with Intraluminal Device, Via Natural or Artificial Opening Endoscopic (ICD-10-PCS; 2016-04-06)
DX: A41.9 Sepsis, unspecified organism (principal); J96.21 Acute and chronic respiratory failure with hypoxia; J69.0 Pneumonitis due to inhalation of food and vomit; J90 Pleural effusion, not elsewhere classified; E11.65 Type 2 diabetes mellitus with hyperglycemia; J44.1 Chronic obstructive pulmonary disease with (acute) exacerbation; K22.2 Esophageal obstruction; Z99.81 Dependence on supplemental oxygen; C34.91 Malignant neoplasm of unspecified part of right bronchus or lung; K22.4 Dyskinesia of esophagus; R13.10 Dysphagia, unspecified; Z51.5 Encounter for palliative care; N18.3 Chronic kidney disease, stage 3 (moderate); F41.1 Generalized anxiety disorder; I48.2 Chronic atrial fibrillation; F32.9 Major depressive disorder, single episode, unspecified; E78.5 Hyperlipidemia, unspecified; E66.01 Morbid (severe) obesity due to excess calories; I12.9 Hypertensive chronic kidney disease with stage 1 through stage 4 chronic kidney disease, or unspecified chronic kidney disease; T38.0X5A Adverse effect of glucocorticoids and synthetic analogues, initial encounter; Z68.37 Body mass index [BMI] 37.0-37.9, adult; Z66 Do not resuscitate; Z79.01 Long term (current) use of anticoagulants; M19.90 Unspecified osteoarthritis, unspecified site; Z77.090 Contact with and (suspected) exposure to asbestos; Z87.891 Personal history of nicotine dependence
CPT/HCPCS: 71010; 71250; 74220; 74230; 76000; 80048; 80053; 80162; 82962; 83036; 83605; 83735; 83880; 84100; 84145; 84443; 84484; 85025; 87070; 87077; 87186; 87205; 92611-GN; 93005; 94640; 94668; 97110-GP; 97163-GP; 97164-GP; 97530-GP; A9270-GY; C1729; C1876; C9113; G8978-CL-GP; G8979-CL-GP; J0330; J0692; J1160; J1940; J2405; J2543; J2550; J2920; J2930; J3370